=== PATIENT | male | born 1960 | race Caucasian/White ===

== ENCOUNTER 2016-09-27 09:05 | Inpatient (IN) | payer BC ==
[~2016-09-27] VITALS: Ht 177.8 cm; Wt 77.0 kg
[2016-09-27] VITALS (23 sets, daily range): BP systolic 120–150; BP diastolic 64–86; PULSE 42–61; RESP 12–18; Ht 177.8 cm; Wt 77.0 kg
[2016-09-27] MEDS ORDERED: MELO-110 PO (09:34)
[2016-09-27] MEDS ORDERED: PANT40TA3 PO (09:37)
[2016-09-27] MEDS ORDERED: TRAM-40 PO (09:37)
[2016-09-27] MEDS ORDERED: CEFAZOLIN 2 GM/50 ML (PMX) 50 ML IVPB SCH (10:30)
[2016-09-27] MEDS ORDERED: LACTATED RINGER'S 1,000 ML IV* SCH (10:30)
[2016-09-27] MEDS ORDERED: BUPIVACAINE 0.25%/EPI (SDV) 30 ML INJ ONE (11:30)
[2016-09-27] MEDS ORDERED: THROMBIN 5000 UNIT VIAL ONE (11:30)
[2016-09-27] MEDS ORDERED: SURGIFOAM POWDER 1 GM KIT ONE (11:30)
[2016-09-27] MEDS ORDERED: GELATIN SIZE 100 SPONGE ONE (11:30)
[2016-09-27] MEDS ORDERED: BUPIVACAINE 0.25% (MPF) 30 ML INJ ONE (11:30)
[2016-09-27] MEDS ORDERED: POLYMYXIN/BACITRACIN 1L IRRIG ONE (12:08)
[2016-09-27] MEDS ORDERED: PROPOFOL 100 ML ONE (12:15)
[2016-09-27] MEDS ORDERED: ACETAMINOPHEN 1000MG/100ML IV 100 ML ONE (12:15)
[2016-09-27] MEDS ORDERED: ROCURONIUM 50 MG INJ ONE (12:15)
[2016-09-27] MEDS ORDERED: LIDOCAINE 2 GM/D5W 500 ML ONE (12:15)
--- NOTE | 2016-09-27 12:15 | HPN ---
Date/Time of Note Date/Time of Note DATE: 09/27/16 TIME: 12:15 Interval H&P Admission Note Pt. seen H&P reviewed: No system changes JORGE RAMOS PA-C Sep 27, 2016 12:15
[2016-09-27] MEDS ORDERED: CA CHLORIDE 10% 10 ML SYRINGE ONE (12:18)
[2016-09-27] MEDS ORDERED: FENTAnyl 50 MCG/ML VIAL ONE ×2 (12:20→14:23)
[2016-09-27] MEDS ORDERED: ACETAMINOPHEN 325 MG TAB PO PRN (12:30)
[2016-09-27] MEDS ORDERED: CEPASTAT LOZENGE MT PRN (12:30)
[2016-09-27] MEDS ORDERED: BISACODYL 10 MG SUPP PR PRN (12:30)
[2016-09-27] MEDS ORDERED: ZOLPIDEM 5 MG TAB PO PRN (12:30)
[2016-09-27] MEDS ORDERED: NALOXONE (0.4 MG/ML) INJ IV PRN (12:30)
[2016-09-27] MEDS ORDERED: DIPHENHYDRAMINE 50 MG INJ IV PRN (12:30)
[2016-09-27] MEDS ORDERED: AL HYDROX/MG HYDROX/SIMETH 30 ML CUP PO PRN (12:30)
[2016-09-27] MEDS ORDERED: CYCLOBENZAPRINE 10 MG TAB PO PRN (12:30)
[2016-09-27] MEDS ORDERED: ONDANSETRON 4 MG INJ IV PRN ×2 (12:30→13:30)
[2016-09-27] MEDS ORDERED: HYDROmorphONE 1 MG/ML SYG IV PRN (12:30)
[2016-09-27] MEDS ORDERED: HYDROmorphONE 2 MG/ML SYG ONE (12:57)
[2016-09-27] MEDS ORDERED: DEXAMETHASONE 4 MG/ML 1 ML INJ ONE (13:00)
[2016-09-27] MEDS ORDERED: POLYMYXIN/BACITRACIN 1L IRRIG IRR ONE (13:05)
[2016-09-27] MEDS ORDERED: BUPIVACAINE 0.25%/EPI (SDV) 30 ML INJ INJ ONE (13:05)
[2016-09-27] MEDS ORDERED: THROMBIN 5000 UNIT VIAL TOP ONE (13:05)
[2016-09-27] MEDS ORDERED: METOCLOPRAMIDE 10 MG INJ IV PRN (13:30)
[2016-09-27] MEDS ORDERED: MEPERIDINE 25 MG INJ IV PRN (13:30)
[2016-09-27] MEDS ORDERED: FENTAnyl 50 MCG/ML VIAL IV PRN ×2 (13:30)
[2016-09-27] MEDS ORDERED: EPHEDrine SULFATE 50 MG/5 ML SYG IV PRN (13:30)
[2016-09-27] MEDS ORDERED: HYDROmorphONE (0.2 MG/ML) 10ML SYG IV PRN ×2 (13:30)
[2016-09-27] MEDS ORDERED: hydrALAzine 20 MG INJ IV PRN (13:30)
[2016-09-27] MEDS ORDERED: LABETALOL HCL 20MG INJ IV PRN (13:30)
--- NOTE | 2016-09-27 14:43 | RADRPT ---
PROCEDURE: Intraoperative imaging of the lumbar spine with fluoroscopy. CLINICAL INDICATION: Back pain. Intraoperative. TECHNIQUE: 5 images of the lumbar spine were obtained in the operating room with an image intensif ier. No radiologist was in attendance. 16.4 seconds of fluoroscopy time was used. COMPARISON: No prior study is available for comparison. FINDINGS: For the purposes of this report, the last apparent true disc level is considered to be L5-S1. Based on this, images demonstrate posterior surgical instruments overlying the L4-5 level and the L5-S1 l evel. IMPRESSION: 1. Intraoperative imaging of the lumbar spine. RPTAT: QQ .Johnnie Cooper MD, MD Date Time Electronically viewed and signed by .Johnnie Cooper MD, on 09/27/2016 14:43 .R/
[2016-09-27] MEDS: FENTAnyl 50 MCG/ML VIAL IV PRN ×2 (15:19→15:25)
[2016-09-27] MEDS: HYDROmorphONE 0.2 MG/ML PCA IV SCH (15:22)
--- NOTE | 2016-09-27 16:37 | OPR ---
DATE OF OPERATION: 09/27/2016 PREOPERATIVE DIAGNOSIS: L4-L5 degenerative spondylolisthesis and stenosis with left lumbosacral rad iculopathy. POSTOPERATIVE DIAGNOSES: L4-L5 degenerative spondylolisthesis and stenosis with left lumbosacral ra diculopathy. OPERATION PERFORMED 1. Left L4-L5 decompression with decompression of left L5 nerve root and extraforaminal decompressi on of left L4 nerve root. 2. Use of operative microscope. 3. Use of C-arm fluoroscopy with interpretation without radiologist present. 4. Intraoperative neuromonitoring (1.5 hours). 5. Epidural injection via catheter. PRIMARY SURGEON: Michele Jesus MD. DELICATESSEN MANAGER: ASHLEY Diamond NEED FOR CONTROL PANEL ASSEMBLER: During this spinal surgical procedure, my specimen preparation assistant was used to retrac t and protect the spinal nerves and dural sac. My specimen preparation assistant also employed the suction catheters to evacuate blood from the surgical field to improve visualization of the neural structures. The marcos tant was medically necessary to facilitate the completion of the surgery in a safe and expeditious m wilda. State of [place] regulations, as well as hospital bylaws, preclude the use of non-license d health care personnel, such as operating room technicians, to perform these functions. FINDINGS: Neuromonitoring at the start of the case revealed bilateral L4 right, L5 and right S1 amp litude down 20%, left L5 amplitude down 60%, left S1 amplitude down 50%. At the end of the case L4 amplitude down 10% bilaterally, L5 was equal bilaterally. Left S1 is down 20% and right S1 was norm al. The patient had stenosis on the left at L4-L5. PRIMARY SURGEON: Michele Guillen MD. ESTIMATED BLOOD LOSS: 30 mL. DRAINS: None. SPECIMENS: None. COMPLICATIONS OF PROCEDURES: None. ANESTHESIOLOGIST: Dr. Stinson. TYPE OF ANESTHESIA: General. INDICATIONS FOR PROCEDURE: This is a 56-year-old gentleman with left lumbosacral radiculopathy in t he setting of stenosis at L4-L5. He failed nonoperative measures, therefore, I recommended proceedi ng with the above-mentioned surgery. Preoperatively, we discussed the risks, benefits, and alternat azael. He understood and wished to proceed. DESCRIPTION OF PROCEDURE IN DETAIL: The patient was identified in the preoperative holding area, [facility], taken to the operating room, where he was successfully placed under general an esthesia. Neuromonitoring leads were placed, sequential compressive devices were applied. Neuromon itoring was utilized during the procedure for 1.5 hours to include SSEP, MEP, and EMG. This was per formed by TSO3. Start time was 1 p.m., closure time was 2:30 p.m. The patient was plac ed on the operating table in prone position over a Hawk frame. All bony prominences were well pad ded. The back was then prepped and draped in the usual sterile fashion. Using the C-arm fluoroscop e, I identified the incision site. I anesthetized the skin, subcutaneous tissue, and paraspinal mus culature with 0.25% Marcaine and epinephrine. Incision was then made over the L4-5 level. Incision was taken down to dorsal fascia, which was incised with Bovie cautery. I then subperiosteally diss ected the left L4 lamina. Tamanna retractor was placed. Kerrison was placed in what was felt to be the L4 lamina. Repeat lateral films obtained to confirm the correct levels. Once this was confirme d, microscope was brought in. The patient had overgrowth of the facet joint and had calcification o f the ligamentum flavum. I was able to perform a hemilaminotomy followed by removal of ligamentum f lavum and perform a partial medial facetectomy. I then identified the left L5 and L4 nerve roots. I decompressed the left L4 nerve root throughout its intraspinal course with the Kerrison punch. I then utilized the RedRoverano device and performed an extraforaminal decompression of the left L4 nerve u sing the 10 mm shaver under C-arm fluoroscopy. Once this was done, the nerve signals significantly improved. I irrigated the wound. I achieved hemostasis with bipolar cautery and Surgifoam. A Vals shelton maneuver was performed and there was no leak of CSF. The wound was dry and therefore, I electe d not to place a drain. I then passed an epidural catheter through which I injected 100 mcg of fent anyl. The catheter was then removed. Anesthesiologist keron peripheral blood, which was spun down u sing the Locu device. I took the platelet-poor plasma mixed with thrombin and injected this ove r the dura for hemostatic purposes. The retractors were removed and I closed the deep fascia with # 1 Vicryl stitch. I closed subcutaneous tissue with 2-0 Vicryl stitch. Microscope was taken off the field. A 4-0 Monocryl closure was then performed. Dermabond and sterile dressings were then appli ed. The patient was then awakened from anesthesia and taken to recovery room in stable condition. Lap, sponge and needle counts were correct x2. There were no apparent complications during the proc edure. The patient will be admitted to the orthopedic sims for routine postoperative care to include pain c ontrol, neurovascular checks, antibiotics and physical therapy. Dictated By: MICHELE CEDILLO/JACOBO Conf#: [id number] DID#: [id number]
[2016-09-27] MEDS: HYDROmorphONE (0.2 MG/ML) 10ML SYG IV PRN ×2 (16:38→16:46)
--- NOTE | 2016-09-27 20:58 | CONS ---
DATE OF ADMISSION: 09/27/2016 DATE OF CONSULTATION: Thank you, Dr. Jesus for asking me to participate in the medical management of this patient. REASON FOR CONSULTATION: To manage the patient's gastroesophageal reflux disease. HISTORY OF PRESENT ILLNESS: This 56-year-old man is now postoperative a lumbar spine surgery. The patient underwent an L4-L5 decompression with decompression of left L5 nerve root and extraforaminal decompression of left L4 nerve root. The patient is now awake and alert. He denies any chest pain or shortness of breath. The patient is having some mild low back pain, incisional that is being co ntrolled with the DIVISION PLANT ENGINEER. The patient was having low back pain with radiation down his left leg and al so numbness and tingling. The patient was seen preoperatively by Dr. Niraj Merritt. There is a note on the chart from Dr. Merritt. PAST MEDICAL HISTORY: Arthritis, fatty change of the liver, impaired glucose tolerance, vitamin B12 deficiency, vitamin D deficiency. PREOPERATIVE MEDICATIONS: Included tramadol 50 mg twice a day as needed for pain, meloxicam 15 mg a day, Protonix 40 mg a day. PAST SURGICAL HISTORY: Bilateral knee surgery. SOCIAL HISTORY: The patient is , does drink caffeine and does drink alcohol socially. FAMILY HISTORY: Chronic obstructive airways disease in his mother, diabetic neuropathy in his fathe r, Alzheimer disease in his mother. ALLERGIES: HE HAS NO KNOWN ACTIVE DRUG ALLERGIES. PHYSICAL EXAMINATION: GENERAL: At this time reveals a well-developed man in no apparent distress. VITAL SIGNS: His temperature is 98, pulse of 52, respirations 18, blood pressure 140/74, O2 saturat ion 98% on room air. HEENT: Head normocephalic. Eyes: Extraocular muscles intact. NOSE AND MOUTH: Normal. NECK: Supple. No neck vein distention. LUNGS: Clear to auscultation. HEART: Regular rhythm. No murmurs, gallops or rubs. ABDOMEN: Soft, nontender. EXTREMITIES: No peripheral edema. IMPRESSION: This patient is stable after lumbar spine surgery today. He denies any chest pain or s hortness of breath. The patient does have a history of gastroesophageal reflux disease which I will manage in the hospital. He also has a history of osteoarthritis involving his knees. PLAN: 1. Resume some routine medications. 2. Check labs in the morning. 3. Postop lumbar spine surgery protocol. 4. I will follow the patient along with you. Dictated By: MARKELL MADERA MD, ND/JACOBO Conf#: [id number] DID#: [id number]
[2016-09-27] MEDS: CEFAZOLIN 1 GM/50 ML (PMX) 50 ML IVPB SCH ×2 (21:00→21:11)
[2016-09-27] MEDS: DOCUSATE SODIUM 100 MG CAP PO SCH (21:10)
[2016-09-27] MEDS: D5W-0.45 NACL + KCL 20 MEQ 1,000 ML IV SCH ×2 (21:11→21:12)
[2016-09-27] MEDS: TAMSULOSIN (SR) 0.4 MG CAP PO SCH (22:12)
[2016-09-28 00:03] VITALS: BP 121/81; RESP 16
[2016-09-28] MEDS: CEFAZOLIN 1 GM/50 ML (PMX) 50 ML IVPB SCH (04:15)
[2016-09-28] MEDS: HYDROmorphONE 0.2 MG/ML PCA IV SCH (04:21)
[2016-09-28 05:40] LABS: ADD SCAN DIFF NO
[2016-09-28 05:45] LABS: BASOPHILS % 0.1 % (0.0-2.0); HEMATOCRIT 43.7 % (42.0-52.0); HEMOGLOBIN 14.7 g/dl (14.0-18.0); LYMPHOCYTES # 0.9 10^3/ul (0.8-2.9); LYMPHOCYTES % 7.3 % (15.0-51.0); MEAN CORPUSCULAR HEMOGLOBIN 33.3 pg (29.0-33.0); MEAN CORPUSCULAR HGB CONC 33.6 g/dl (32.0-37.0); MEAN CORPUSCULAR VOLUME 98.9 fl (82.0-101.0); MEAN PLATELET VOLUME 9.4 fl (7.4-10.4); MONOCYTE # 0.7 10^3/ul (0.3-0.9); MONOCYTES % 5.7 % (0.0-11.0); NEUTROPHIL # 10.2 10^3/ul (1.6-7.5); NEUTROPHILS % 86.4 % (39.0-77.0); PLATELET COUNT 278 10^3/UL (140-415); RED BLOOD COUNT 4.42 10^6/ul (4.70-6.10); RED CELL DISTRIBUTION WIDTH 13.5 % (11.5-14.5); WHITE BLOOD COUNT 11.9 10^3/ul (4.8-10.8)
[2016-09-28 06:01] LABS: POTASSIUM 4.2 mmol/L (3.5-5.1)
[2016-09-28 06:04] LABS: CREATININE 0.7 mg/dl (0.61-1.24)
[2016-09-28 06:05] LABS: CALCIUM 9.3 mg/dl (8.4-10.2); MAGNESIUM 1.8 mg/dl (1.7-2.5)
[2016-09-28] MEDS: PANTOPRAZOLE (EC) 40 MG TAB PO SCH (06:05)
[2016-09-28 08:09] VITALS: BP 117/64; RESP 18
[2016-09-28] MEDS: D5W-0.45 NACL + KCL 20 MEQ 1,000 ML IV SCH ×2 (08:15→18:15)
[2016-09-28] MEDS: DOCUSATE SODIUM 100 MG CAP PO SCH ×2 (09:26→21:05)
[2016-09-28] MEDS ORDERED: HYDROCODONE/APAP (10/325) TAB PO SCH (09:30)
[2016-09-28] MEDS ORDERED: HYDROCODONE/APAP (10/325) TAB PO PRN (10:00)
--- NOTE | 2016-09-28 10:12 | PN ---
Date/Time of Note Date/Time of Note DATE: 09/28/16 TIME: 10:11 Assessment/Plan Lines/Catheters IV Catheter Type (from Nrsg): Peripheral IV Stahl in Place (from Nrsg): Yes Assessment/Plan Assessment/Plan s/p lumbar decompression will d/c stahl continue with PT and pain mgmt possible d.c tomorrow Subjective 24 Hr Interval Summary c/o left leg pain Exam/Review of Systems Vital Signs Vitals Vital Signs Date Time Temp Pulse Resp B/P Pulse Ox O2 Delivery O2 Flow Rate FiO2 09/28/16 08:09 97.9 60 18 117/64 97 09/27/16 21:57 Room Air 09/27/16 16:27 2.0 Intake and Output 09/27/16 09/27/16 09/28/16 15:00 23:00 07:00 Intake Total 1700 ml 200 ml 3100 ml Output Total 20 ml 2900 ml Balance 1680 ml 200 ml 200 ml Exam Free Text/Dictation nvi, wound c/d/i Results Result Diagram: 09/28/16 0455 09/28/16 0455 PRERNA TALBERT MD Sep 28, 2016 10:12
--- NOTE | 2016-09-28 14:02 | CONS ---
Date/Time of Note Date/Time of Note DATE: 09/28/16 TIME: 13:58 Assessment/Plan Assessment/Plan Chief Complaint/Hosp Course 1. he is one day post op a lumbar spine surgery and doing well . 2. he is voiding now after having a Stahl catheter in place .on Flomax 3. continue current medication and PT . Problems: Consultation Date/Type/Reason Admit Date/Time Sep 27, 2016 at 09:05 Initial Consult Date 24 HR Interval Summary Free Text/Dictation He is one day post op a lumbar spine surgery and doing well . He is voiding on his own now . He had a stahl catheter in place last night . Constitutional: improved, no complaints Exam/Review of Systems Vital Signs Vitals Vital Signs Date Time Temp Pulse Resp B/P Pulse Ox O2 Delivery O2 Flow Rate FiO2 09/28/16 08:09 97.9 60 18 117/64 97 09/27/16 21:57 Room Air 09/27/16 16:27 2.0 Intake and Output 09/27/16 09/27/16 09/28/16 15:00 23:00 07:00 Intake Total 1700 ml 200 ml 3100 ml Output Total 20 ml 2900 ml Balance 1680 ml 200 ml 200 ml Exam Constitutional: alert, oriented, well developed Psych: nl mood/affect, no complaints Respiratory: clear to auscultation, normal air movement Cardiovascular: regular rate and rhythm Gastrointestinal: soft Musculoskeletal: nl extremities to inspection Results Result Diagram: 09/28/16 0455 09/28/16 0455 Results 24 hrs Laboratory Tests Test 09/28/16 04:55 White Blood Count 11.9 H Red Blood Count 4.42 L Hemoglobin 14.7 Hematocrit 43.7 Mean Corpuscular Volume 98.9 Mean Corpuscular Hemoglobin 33.3 H Mean Corpuscular Hemoglobin Concent 33.6 Red Cell Distribution Width 13.5 Platelet Count 278 Mean Platelet Volume 9.4 Neutrophils % 86.4 H Lymphocytes % 7.3 L Monocytes % 5.7 Eosinophils % 0.0 Basophils % 0.1 Nucleated Red Blood Cells % 0.0 Neutrophils # 10.2 H Lymphocytes # 0.9 Monocytes # 0.7 Eosinophils # 0.0 Basophils # 0.0 Nucleated Red Blood Cells # 0.0 Sodium Level 137 Potassium Level 4.2 Chloride Level 99 Carbon Dioxide Level 27 Anion Gap 15 Blood Urea Nitrogen 9 Creatinine 0.70 Glucose Level 117 Calcium Level 9.3 Magnesium Level 1.8 Medications Medications Current Medications Lactated Ringer's 1,000 ml @ 20 mls/hr Q24H IV* ; Start 09/27/16 at 10:30; Stop 09/29/16 at 12:29 Potassium Chloride/Dextrose/ Sod Cl (D5-1/2ns + KCl 20 Meq) 1,000 ml @ 100 mls/ hr Q10H IV Last administered on 09/27/16 21:11; Admin Dose 100 MLS/HR; Start 09/27/16 at 12:15 Hydromorphone HCl (Dilaudid) 0.2 mg Q1H PRN IV BREAKTHROUGH PAIN; Start at 12:30 Ondansetron HCl (Zofran Inj) 4 mg Q6H PRN IV NAUSEA AND/OR VOMITING; Start 04/05 at 12:30 Bisacodyl (Dulcolax Supp) 10 mg DAILY PRN [place] CONSTIPATION; Start 09/27/16 at 12 :30 Docusate Sodium (Colace) 100 mg BID PO Last administered on 09/28/16 09:26; Admin Dose 100 MG; Start 09/27/16 at 21:00 Al Hydrox/Mg Hydrox/Simethicone (Mag-Al Plus) 15 ml Q6H PRN PO CONSTIPATION/ DYSPEPSIA; Start 09/27/16 at 12:30 Acetaminophen (Tylenol Tab) 650 mg Q4H PRN PO COFFMAN OR TEMP GREATER THAN 101.3F; Start 09/27/16 at 12:30 Phenol (Cepastat Lozenge) 1 lozenge PRN PRN MT SORE THROAT; Start 09/27/16 at 12:30 Diphenhydramine HCl (Benadryl) 25 mg Q6H PRN IV ITCHING; Start 09/27/16 at 12: 30 Naloxone HCl (Narcan) 0.2 mg Q2M PRN IV RR 8 BREATHS/MIN OR LESS; Start at 12:30 Hydromorphone HCl (Dilaudid ADJUSTMENT SUPERVISOR) ADJUSTMENT SUPERVISOR to be started in PACU Q4PCA IV Last administered on 09/28/16 04:21; Admin Dose 6 MG; Start 09/27/16 at 12:30; Status Future Hold Miscellaneous Information 1. Hold ADJUSTMENT SUPERVISOR at 1,000... ADJUSTMENT SUPERVISOR IV ; Start 09/27/16 at 12: 30 Acetaminophen/ Hydrocodone Bitart ([place] (10/325)) 1 tab Q4H PRN PO PAIN LEVEL 1-5; Start 09/28/16 at 10:00 Acetaminophen/ Hydrocodone Bitart ([place] (10/325)) 2 tab Q4H PRN PO PAIN LEVEL 6-10; Start 09/28/16 at 10:00 Cyclobenzaprine HCl (Flexeril) 10 mg TID PRN PO MUSCLE SPASMS; Start 09/27/16 at 12:30 Pantoprazole (Protonix Tab) 40 mg DAILY@06 PO Last administered on 09/28/16 06 :05; Admin Dose 40 MG; Start 09/28/16 at 06:00 Tamsulosin HCl (Flomax) 0.4 mg HS PO Last administered on 09/27/16 22:12; Admin Dose 0.4 MG; Start 09/27/16 at 22:00 MARKELL MADERA MD Sep 28, 2016 14:02
[2016-09-28] MEDS: HYDROCODONE/APAP (10/325) TAB PO PRN ×2 (15:27→21:05)
[2016-09-28 20:02] VITALS: BP 109/55; RESP 18
[2016-09-28] MEDS: TAMSULOSIN (SR) 0.4 MG CAP PO SCH (21:05)
[2016-09-29] MEDS: HYDROCODONE/APAP (10/325) TAB PO PRN ×4 (00:09→12:06)
[2016-09-29] MEDS: D5W-0.45 NACL + KCL 20 MEQ 1,000 ML IV SCH ×2 (04:08→09:25)
[2016-09-29] MEDS: PANTOPRAZOLE (EC) 40 MG TAB PO SCH (06:49)
[2016-09-29 07:59] VITALS: BP 114/67; RESP 18
[2016-09-29] MEDS: DOCUSATE SODIUM 100 MG CAP PO SCH (08:31)
--- NOTE | 2016-09-29 08:49 | CONS ---
Date/Time of Note Date/Time of Note DATE: 09/29/16 TIME: 08:43 Assessment/Plan Assessment/Plan Chief Complaint/Hosp Course 1. he is two days post op a lumbar spine surgery and doing well . He could be discharged to home today . 2. he is voiding now after having a Helm catheter in place .on Flomax . I gave him a prescription for Flomax . 3. continue current medication and PT . Problems: Consultation Date/Type/Reason Admit Date/Time Sep 27, 2016 at 09:05 24 HR Interval Summary Free Text/Dictation He is 2 days post op a lumbar spine surgery . He is doing well . Constitutional: improved, no complaints Exam/Review of Systems Vital Signs Vitals Vital Signs Date Time Temp Pulse Resp B/P Pulse Ox O2 Delivery O2 Flow Rate FiO2 09/29/16 07:59 99.2 99 18 114/67 94 09/27/16 21:57 Room Air 09/27/16 16:27 2.0 Intake and Output 09/28/16 09/28/16 09/29/16 15:00 23:00 07:00 Intake Total 900 ml 1200 ml Output Total 1700 ml 600 ml Balance -800 ml 600 ml Exam Constitutional: alert, oriented, well developed Respiratory: clear to auscultation, normal air movement Cardiovascular: regular rate and rhythm Gastrointestinal: soft Musculoskeletal: nl extremities to inspection Results Result Diagram: 09/28/16 0455 09/28/16 0455 Medications Medications Current Medications Lactated Ringer's 1,000 ml @ 20 mls/hr Q24H IV* ; Start 09/27/16 at 10:30; Stop 09/29/16 at 12:29 Potassium Chloride/Dextrose/ Sod Cl (D5-1/2ns + KCl 20 Meq) 1,000 ml @ 100 mls/ hr Q10H IV Last administered on 09/27/16 21:11; Admin Dose 100 MLS/HR; Start 09/27/16 at 12:15 Hydromorphone HCl (Dilaudid) 0.2 mg Q1H PRN IV BREAKTHROUGH PAIN Last administered on 09/28/16 21:34; Admin Dose 0.2 MG; Start 09/27/16 at 12:30 Ondansetron HCl (Zofran Inj) 4 mg Q6H PRN IV NAUSEA AND/OR VOMITING; Start 04/05 at 12:30 Bisacodyl (Dulcolax Supp) 10 mg DAILY PRN [place] CONSTIPATION; Start 09/27/16 at 12 :30 Docusate Sodium (Colace) 100 mg BID PO Last administered on 09/29/16 08:31; Admin Dose 100 MG; Start 09/27/16 at 21:00 Al Hydrox/Mg Hydrox/Simethicone (Mag-Al Plus) 15 ml Q6H PRN PO CONSTIPATION/ DYSPEPSIA; Start 09/27/16 at 12:30 Acetaminophen (Tylenol Tab) 650 mg Q4H PRN PO COFFMAN OR TEMP GREATER THAN 101.3F; Start 09/27/16 at 12:30 Phenol (Cepastat Lozenge) 1 lozenge PRN PRN MT SORE THROAT; Start 09/27/16 at 12:30 Diphenhydramine HCl (Benadryl) 25 mg Q6H PRN IV ITCHING; Start 09/27/16 at 12: 30 Naloxone HCl (Narcan) 0.2 mg Q2M PRN IV RR 8 BREATHS/MIN OR LESS; Start at 12:30 Hydromorphone HCl (Dilaudid CASHIER MANAGER) CASHIER MANAGER to be started in PACU Q4PCA IV Last administered on 09/28/16 04:21; Admin Dose 6 MG; Start 09/27/16 at 12:30; Status Future Hold Miscellaneous Information 1. Hold CASHIER MANAGER at 1,000... CASHIER MANAGER IV ; Start 09/27/16 at 12: 30 Acetaminophen/ Hydrocodone Bitart ([place] (10/325)) 1 tab Q4H PRN PO PAIN LEVEL 1-5; Start 09/28/16 at 10:00 Acetaminophen/ Hydrocodone Bitart ([place] (10/325)) 2 tab Q4H PRN PO PAIN LEVEL 6-10 Last administered on 09/29/16 08:31; Admin Dose 2 TAB; Start 09/28/16 at 10:00 Cyclobenzaprine HCl (Flexeril) 10 mg TID PRN PO MUSCLE SPASMS; Start 09/27/16 at 12:30 Pantoprazole (Protonix Tab) 40 mg DAILY@06 PO Last administered on 09/29/16 06 :49; Admin Dose 40 MG; Start 09/28/16 at 06:00 Tamsulosin HCl (Flomax) 0.4 mg HS PO Last administered on 09/28/16t 21:05; Admin Dose 0.4 MG; Start 09/27/16 at 22:00 MARKELL MADERA MD Sep 29, 2016 08:49
--- NOTE | 2016-09-29 13:59 | DS ---
DATE OF ADMISSION: 09/27/2016 DATE OF DISCHARGE: 09/29/2016 ADMITTING DIAGNOSIS: Spinal stenosis. DISCHARGE DIAGNOSIS: Spinal stenosis. PROCEDURE: Patient taken to the operating room on 09/27/2016 and underwent lumbar decompression. HOSPITAL COURSE: Patient was admitted to orthopedic sims after undergoing the above procedure. His postoperative course was uncomplicated. By postoperative day 2, he was deemed stable for discharge with followup arranged with the undersigned. Dictated By: PRERNA CEDILLO/JACOBO Conf#: [id number] DID#: [id number]
== END 2016-09-29 12:55 | disposition home or self-care (01) | DRG 517 ==
LOC: REC 09:05 → MS1 16:56
PROVIDERS: ADMIT Specialist; ATTEND Specialist
PROC: 01NB0ZZ Release Lumbar Nerve, Open Approach (ICD-10-PCS; principal; 2016-09-27 12:00)
DX: M48.06 Spinal stenosis, lumbar region (principal); M41.26 Other idiopathic scoliosis, lumbar region; M47.816 Spondylosis without myelopathy or radiculopathy, lumbar region; M43.16 Spondylolisthesis, lumbar region; M54.17 Radiculopathy, lumbosacral region
CPT/HCPCS: 72110; 80048; 83735; 85025; 86999; 97116; 97162; 97530; J2001; J0131; J0690; J1100; J1170; J2175; J2405; J3010; J3480; J7120